=== PATIENT | female | born 1940 | race Caucasian/White ===

== ENCOUNTER → 2016-08-10 | Outpatient (REF) | payer MEDICARE, BC ==
[2016-08-10 17:58] LABS: MEAN CORPUSCULAR HGB CONC 34.1 g/dl (32.0-36.5); MEAN CORPUSCULAR VOLUME 93.8 fl (80.0-96.0); RED CELL DISTRIBUTION WIDTH 12.1 % (11.5-14.5); WHITE BLOOD COUNT 6.2 K/mm3 (4.0-10.0)
[2016-08-10 18:54] LABS: VITAMIN B12 LEVEL 795 PG/ML (247-911)
[2016-08-10 18:57] LABS: ALBUMIN 4.2 GM/DL (3.2-5.2); ALBUMIN/GLOBULIN RATIO 1.31 (1.00-1.93); ALKALINE PHOSPHATASE 128 U/L (45-117); ALT/SGPT 25 U/L (12-78); ANION GAP 8 MEQ/L (8-16); AST/SGOT 18 U/L (15-37); BILIRUBIN,TOTAL 0.2 MG/DL (0.2-1.0); BLOOD UREA NITROGEN 30 MG/DL (7-18); CARBON DIOXIDE LEVEL 31 MEQ/L (21-32); CHLORIDE LEVEL 100 MEQ/L (98-107); CREATININE FOR GFR 0.93 MG/DL (0.55-1.02); FERRITIN 61 NG/ML (8-252); GLOMERULAR FILTRATION RATE > 60.0 (>39); GLUCOSE, FASTING 77 MG/DL (83-110); PERCENT SATURATION 22.6 % (13.2-37.4); SODIUM LEVEL 139 MEQ/L (136-145); TOTAL IRON BINDING CAPACITY 314 UG/DL (250-450); TOTAL PROTEIN 7.4 GM/DL (6.4-8.2)
== END ==
LOC: M SFHCPLAZ 15:54
PROVIDERS: ATTEND Nurse Practitioner Adult Health
DX: R53.83 Other fatigue (principal); I10 Essential (primary) hypertension; G40.909 Epilepsy, unspecified, not intractable, without status epilepticus; K21.9 Gastro-esophageal reflux disease without esophagitis; E55.9 Vitamin D deficiency, unspecified; J45.909 Unspecified asthma, uncomplicated; K58.9 Irritable bowel syndrome, unspecified; K44.9 Diaphragmatic hernia without obstruction or gangrene; M19.90 Unspecified osteoarthritis, unspecified site; N95.2 Postmenopausal atrophic vaginitis; M25.551 Pain in right hip; M48.06 Spinal stenosis, lumbar region; M47.817 Spondylosis without myelopathy or radiculopathy, lumbosacral region; Z79.899 Other long term (current) drug therapy
CPT/HCPCS: 36415; 80053; 81002; 82607; 82728; 83550; 85027; 87088; 87186; G0463

== ENCOUNTER → 2016-10-25 | Outpatient (CLI) | payer MEDICARE, BC ==
[~2016-10-25] MED LIST: ASPE4PAD2 EX; BIOF4GEL EX; CELE100C PO; CEPH500T PO; CLAR10CA3 PO; COUM2.5T17 PO; DEXI60CA2 PO; FOLI1TAB4 PO; GLUC15002 PO; GLUCTAB PO; HYDR25TAB PO; IBUP-1114 PO; LUTE20CA PO; MAGN200T PO; MOME50SP2; MSM1500T PO; NUTRIFERON PO; PATA0.2S OP; PERC5TAB12 PO; PHEN100C PO; REFR0.5D8 OP; REST0.05 OP; SING10TA32 PO; SUPE1TAB PO; TYLE650T35 PO; VITA200038 PO; ZAFI20TA PO
[2016-10-25 11:33] LABS: MEAN CORPUSCULAR HGB CONC 34.7 g/dl (32.0-36.5); MEAN CORPUSCULAR VOLUME 92.1 fl (80.0-96.0); RED CELL DISTRIBUTION WIDTH 12.1 % (11.5-14.5); WHITE BLOOD COUNT 5.6 K/mm3 (4.0-10.0)
--- NOTE | 2016-10-25 11:35 | REP ---
Chest two views HISTORY: Hypertension Comparison: 08/03/2012 The lungs are clear. The heart is normal in size. The pulmonary vasculature is normal in appearance. The bony structure is intact. IMPRESSION: No acute disease. Signed by Kaushik Kennedy MD 10/25/2016 11:26 A
[2016-10-25 11:37] LABS: INR 0.98
[2016-10-25 11:47] LABS: ALBUMIN 4.1 GM/DL (3.2-5.2); ALBUMIN/GLOBULIN RATIO 1.21 (1.00-1.93); ALKALINE PHOSPHATASE 116 U/L (45-117); ALT/SGPT 28 U/L (12-78); ANION GAP 5 MEQ/L (8-16); AST/SGOT 24 U/L (15-37); BILIRUBIN,TOTAL 0.3 MG/DL (0.2-1.0); BLOOD UREA NITROGEN 29 MG/DL (7-18); CALCIUM LEVEL 9.4 MG/DL (8.8-10.2); CARBON DIOXIDE LEVEL 32 MEQ/L (21-32); CHLORIDE LEVEL 103 MEQ/L (98-107); CREATININE FOR GFR 0.91 MG/DL (0.55-1.02); GLOMERULAR FILTRATION RATE > 60.0 (>39); GLUCOSE, FASTING 92 MG/DL (83-110); POTASSIUM SERUM 4.7 MEQ/L (3.5-5.1); SODIUM LEVEL 140 MEQ/L (136-145); TOTAL PROTEIN 7.5 GM/DL (6.4-8.2)
--- NOTE | 2016-10-25 20:33 | ECGEPIP ---
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 Normal study Electronically Signed On 10-25-2016 20:33:04 EDT by Dmitriy Burnett
== END ==
LOC: M ADMPAT 09:11
PROVIDERS: ATTEND Orthopaedic Surgery
DX: M16.11 Unilateral primary osteoarthritis, right hip (principal); Z79.01 Long term (current) use of anticoagulants

== ENCOUNTER 2016-11-08 06:11 | Inpatient (IN) | payer MEDICARE, BC ==
[2016-10-25 10:43] VITALS: BP 132/64
--- NOTE | 2016-11-04 12:29 | HPE ---
DATE OF ADMISSION: 11/08/2016 ATTENDING PHYSICIAN: Jignesh Baldwin MD CHIEF COMPLAINT: Right hip pain and stiffness. HISTORY: This is a pleasant 76-year-old female patient with progressively worsening right hip pain and stiffness. She has failed to improve with conservative management. She was admitted for elective hip replacement on the right side. She has consented for a right total hip arthroplasty by Dr. Baldwin. X-rays of her right hip notable for [id number] degenerative changes of the right hip. Medical optimization Mr. Hoyos ALLERGIES: PENICILLIN, ASPIRIN, ULTRAM, DETROL CURRENT MEDICATIONS: Calcium 600 with vitamin D and 600/200 mg one tablet once per day, lovastatin 100 mg tablet once per day, folic acid 1 mg one tablet once per day, Dexilant 60 mg 1 tablet once per day, Singulair 10 mg one tablet once per day, Claritin 10 mg one tablet as needed, Celebrex 100 mg one tablet twice a day, phenytoin 100 mg one tablet TID, hydrochlorothiazide 25 mg one tablet once per day, Zafirlukast 20 mg one tablet BID, lutein 20 mg one tablet once per day, Systane eye drops as needed, ProAir inhaler 100 mcg as needed, Spiriva Respimat 2.5 mcg one spray once per day. PAST SURGICAL HISTORY: She has had a left total hip arthroplasty, breast biopsy total hysterectomy, gallbladder removed tonsils and adenoids removed, tubal ligation and appendectomy. FAMILY HISTORY: Arthritis, diabetes, hypertension and heart disease. SOCIAL HISTORY: She does not smoke. She rarely uses alcohol. She is currently works in [employer]. REVIEW OF SYSTEMS: Denies fever or chills. Denies chest pain, shortness breath or cough. Denies difficulty breathing. Denies abdominal pain. Denies nausea or vomiting. Denies recent upper respiratory infection, urinary tract infection (UTI) symptoms. Notes persistent pain in her right hip with weightbearing activities. Exam today reveals alert well-nourished, well-developed female patient and she walks with a slight limping gait favoring right side. Exam of the right hip does reveal some irritability on hip range of motion. Straight leg raise testing is negative. Deep tendon reflexes are trace at the knee, absent at the ankle. There is a well-perfused right lower extremity. Dorsalis pedis, posterior tibial pulses are palpable. Neck is supple adenopathy or jugular venous distension (JVD). Lungs are clear to auscultation without rales or wheeze. HEART: regular rate and rhythm. ABDOMEN: Bowel sounds are present. VITAL SIGNS: Height 64 inches, weight 135 pounds, temperature 97.6, blood pressure 102/60, temperature i 97.6 pulses 88, respirations 16. LABORATORY DATA: Chest x-ray: No acute cardiopulmonary process noted. Electrocardiogram (EKG): Sinus rhythm. WBC count of eight, red blood cell (RBC) count 5.6, hemoglobin 4.1, hematocrit 13.4, glucose 92, 129, creatinine 0.91, sodium 140, potassium 4.7, PT 13.1, INR 0.98. Urine culture no growth. Sedimentation rate of 8. Urinalysis 1+ blood and trace leukocyte esterase. Nasal culture positive for staphylococcus, methicillin-resistant staphylococcus. She was treated per protocol. Will also changing antibiotics to vancomycin 1 gram IV ammonia operator to the operating room. IMPRESSION: Symptomatic osteoarthritis a right hip. PLAN: Consented for right total hip replacement by Dr. Baldwin. MARLENE
[~2016-11-08] VITALS: Ht 165.1 cm; Wt 62.6 kg
[2016-11-08] VITALS (7 sets, daily range): BP systolic 120–139; BP diastolic 56–67
[2016-11-08] MEDS: **UNRESOLVED NON-FORMULARY MED ORDER XX SCH (00:01)
[~2016-11-08 06:11] MED LIST changes: +BUPIVACAINE/EPIN 0.25% 30 ML VIAL As Ordered ONE; +CLINDAMYCIN INJ 900MG/6ML VIAL As Ordered ONE; -COUM2.5T17 PO; +EPINEPHrine INJ 1 MG/ML 1ML AMP As Ordered ONE; -PERC5TAB12 PO; +TRANEXAMIC ACID 100 MG/ML 10ML VIAL As Ordered ONE
[2016-11-08] MEDS ORDERED: LIDOCAINE 1% SDV 5 ML VIAL SQ ONE (06:30)
[2016-11-08] MEDS ORDERED: LR 1,000 ML IV SCH ×2 (06:30→10:30)
[2016-11-08] MEDS ORDERED: PERCOCET 5MG/325MG TAB PO ONE (06:45)
[2016-11-08] MEDS ORDERED: CelecoXIB 400 MG CAP PO ONE (06:45)
[2016-11-08] MEDS ORDERED: PREGABALIN 75 MG CAP(LYRICA) PO ONE (06:45)
[2016-11-08] MEDS ORDERED: VANCOMYCIN HCL 1,000 MG, VIAL MATE ADAPTER 1 EACH in D5W 250 ML IV ONE ×2 (06:45→19:00)
[2016-11-08] MEDS ORDERED: LIDOCAINE 2% INJ 100 MG/5 ML SDV (FOR ANES.) As Ordered ONE (07:17)
[2016-11-08] MEDS ORDERED: PROPOFOL 200 MG/20 ML VIAL As Ordered ONE (07:17)
[2016-11-08] MEDS ORDERED: MIDAZOLAM INJ 2 MG/2 ML VIAL (J2250) As Ordered ONE ×2 (07:19→08:16)
[2016-11-08] MEDS ORDERED: fentaNYL 100 MCG/2 ML INJECTION (J3010) As Ordered ONE (07:20)
[2016-11-08] MEDS ORDERED: PHENYLephrine HCL 500 MCG/5 ML (100MCG/ML) SYRINGE (J2370) As Ordered ONE (08:36)
[2016-11-08] MEDS ORDERED: ONDANSETRON 4MG/2ML VIAL (J2405) As Ordered ONE (08:36)
[2016-11-08] MEDS ORDERED: ePHEDrine SULFATE 25 MG/5 ML(5MG/ML) SYRINGE As Ordered ONE ×2 (08:36→09:09)
[2016-11-08] MEDS ORDERED: dexameTHASONE 4 MG/ML 1ML VIAL (J1100) As Ordered ONE (08:44)
[2016-11-08] MEDS ORDERED: ONDANSETRON 4MG/2ML VIAL (J2405) IV PRN ×2 (10:30→12:00)
[2016-11-08] MEDS ORDERED: PERCOCET 5MG/325MG TAB PO PRN ×2 (10:30→12:00)
[2016-11-08] MEDS ORDERED: MEPERIDINE INJ 25 MG/ML VIAL (J2175) IV PRN (10:30)
[2016-11-08] MEDS ORDERED: METOCLOPRAMIDE INJ 10MG/2ML VIAL (J2765) IV PRN (10:30)
[2016-11-08] MEDS ORDERED: fentaNYL 100 MCG/2 ML INJECTION (J3010) IV PRN (10:30)
[2016-11-08] MEDS ORDERED: FLEET ENEMA PR PRN (12:00)
[2016-11-08] MEDS ORDERED: ACETAMINOPHEN TAB 650MG DOSE (2X325MG) PO PRN ×2 (12:00)
[2016-11-08] MEDS ORDERED: NORTRIPTYLINE 10 MG CAP PO PRN (12:00)
[2016-11-08] MEDS: PERCOCET 5MG/325MG TAB PO PRN ×2 (12:36→19:20)
[2016-11-08] MEDS: D5W/LR 1,000 ML IV SCH ×2 (12:37→22:32)
[2016-11-08] MEDS ORDERED: ALBUTEROL SULFATE 2.5 MG/0.5 ML INH NEB SOLN INH PRN (13:00)
[2016-11-08] MEDS ORDERED: HYDROmorphone HCL 1 MG/ML SYRINGE (J1170) IV PRN ×2 (13:45)
[2016-11-08] MEDS ORDERED: GLUCAGON FOR INJ 1 MG VIAL (J1610) SC PRN (14:15)
[2016-11-08] MEDS ORDERED: DEXTROSE 50% 50 ML SYRINGE IV PRN (14:15)
[2016-11-08] MEDS ORDERED: GLUCOSE 4 GM CHEW TABLET PO PRN (14:15)
[2016-11-08] MEDS: PANTOPRAZOLE 40MG TAB (PROTONIX) PO SCH (14:45)
[2016-11-08] MEDS: FOLIC ACID 1 MG TAB PO SCH (14:46)
[2016-11-08] MEDS: hydroCHLOROthiazide 25 MG TAB PO SCH (14:46)
[2016-11-08] MEDS: VITAMIN D 1,000 INTERNATIONAL UNITS TABLET PO SCH (14:46)
[2016-11-08] MEDS: LORATADINE 10 MG TAB PO SCH (14:46)
[2016-11-08] MEDS ORDERED: WARFARIN SOD 2.5 MG TAB PO ONE (17:00)
[2016-11-08] MEDS ORDERED: WARFARIN SOD 1 MG TAB PO ONE (17:00)
[2016-11-08] MEDS: PHENYTOIN ER 100 MG CAP PO SCH ×2 (17:02→20:38)
[2016-11-08] MEDS: PREGABALIN 50 MG CAP (LYRICA) PO SCH (20:38)
[2016-11-08] MEDS ORDERED: ZAFIRLUKAST 20 MG TAB PO SCH (21:00)
[2016-11-09] MEDS: **UNRESOLVED NON-FORMULARY MED ORDER XX SCH (00:01)
[2016-11-09] MEDS: PERCOCET 5MG/325MG TAB PO PRN ×4 (01:19→20:24)
[2016-11-09 06:00] VITALS: BP 125/59
--- NOTE | 2016-11-09 06:08 | CR ---
DATE OF CONSULTATION: 11/08/2016 CHIEF COMPLAINT: Right hip pain and stiffness. Hospitalist was consulted for medical management. HISTORY OF PRESENT ILLNESS: This is a pleasant 76-year-old female with significant past medical history of seizure disorder, asthma, hyperlipidemia, hypertension, gastroesophageal reflux disease (GERD), vitamin D deficiency, who also has a history of right hip pain and stiffness, status post right hip replacement by Dr. Baldwin. The patient is resting comfortably on the surgical floor without any acute complaint at this time. Denies any nausea. Tolerated oral intake without difficulty. The patient is taking deep breaths and is willing to utilize spirometer. Pleasant to speak to and no acute complaint at this time. REVIEW OF SYSTEMS: 10-point review of systems negative other than those described in history of present illness (HPI). PAST MEDICAL HISTORY: Significant for hypoglycemia, history of seizure disorder, hyperlipidemia, hypertension, GERD, asthma, and vitamin D deficiency. PAST SURGICAL HISTORY: Includes left total hip arthroplasty, breast biopsy, total hysterectomy, cholecystectomy, tonsil and adenoid removal, tubal ligation, appendectomy. FAMILY HISTORY: Family medical history significant for arthritis, diabetes, hypertension, and heart disease. SOCIAL HISTORY: The patient does not smoke, drink or use illicit drugs. ALLERGIES: The patient is allergic to: 1. PENICILLIN. 2. ASPIRIN. 3. ULTRAM. 4. DETROL. MEDICATIONS FROM HOME: - acetaminophen 650 mg by mouth every eight hours - Celebrex 100 mg by mouth twice a day - cephalexin 500 mg by mouth as needed prior to dental appointment - ibuprofen 400 mg tablet half tablet daily as needed - Aspercreme - lidocaine patch - Biofreeze roll-on 4% gel - Refresh Tears 0.5% drop - Dexilant 60 mg by mouth daily - glucosamine 1500 complex one capsule orally - magnesium 200 mg by mouth daily - methylsulfonylmethane 1500 mg by mouth - mometasone 50 mcg every morning - Pataday 0.2% both eyes every morning - Restasis 0.05% both eyes twice a day - super B complex one tablet once a day - Lutein 20 mg by mouth daily - NutriFeron one powder twice a day - calciferol vitamin D3 2000 units by mouth daily - folic acid 1 mg by mouth daily - hydrochlorothiazide 25 mg by mouth daily - loratadine 10 mg by mouth daily - Singulair one tablet once a day - phenytoin extended release 100 mg by mouth three times a day - zafirlukast 20 mg by mouth twice a day PHYSICAL EXAMINATION: VITAL SIGNS: Temperature is 97.6, heart rate of 82, respiratory rate 16, and saturating 100% on room air. Blood pressure is 133/66. HEENT: Normocephalic. No trauma noted. Inspection of the ears, nose and throat is within normal. Pupils equal, round, and reactive to light and accommodation. Mucus is moist. NECK: Supple. No tracheal deviation. CARDIAC: S1, S2, regular rate and rhythm. Pulses present. LUNGS: Equal air entry. Did not hear any wheezes, rales, or rhonchi. ABDOMEN: Soft, nontender. Bowel sounds present. LOWER EXTREMITIES: The patient is status post right hip replacement. Visualization of the incision site without the bandage looks clean without any bleeding. There was no bandage covering the site. Will defer further management to surgery. Sequential compression devices (SCDs). NECK: The patient is currently awake, alert, and oriented times three. Cranial nerves grossly intact. Motor and sensory intact with limitations after surgery. Normal mood and affect for current situation. Pleasant to speak to. LABORATORY DATA: No recent diagnostic studies other than preoperative laboratory on 10/25 of this year with WBC, hemoglobin and hematocrit, and platelets all within normal. Complete metabolic profile within normal except for BUN of 29 and glucose of 172. Cholesterol level all within normal. Will defer further management of anticholesterol medicine to the primary care provider (PCP). INR, PT within normal. Toxicology: Digoxin level is 0.1. Phenytoin is 8.3. UA did show nonspecific UTI with leukocyte esterase being trace and negative nitrites, with WBC only being 5 for a female. No obvious x-ray for me to review other than preoperative chest x-ray which showed no acute disease. ASSESSMENT AND PLAN: This is a pleasant 76-year-old female with significant past medical history of seizure, hypertension, hyperlipidemia, gastroesophageal reflux disease (GERD), asthma, vitamin D deficiency, and history of hypoglycemia as per staff endorsement, who is status post right hip surgery and replacement by Dr. Baldwin. 1. Right hip replacement. Defer further management to Dr. Baldwin. Defer pain management, anticoagulation to Dr. Baldwin. 2. History of seizure. Will resume phenytoin. 3. Hyperlipidemia. Please follow with PCP. 4. Hypertension. Resume home medication. 5. Gastroesophageal reflux disease (GERD). Substitute home medication with Protonix for now. 6. Asthma. Resume loratadine, Singulair, zafirlukast, and respiratory treatment as needed. Continue spirometer as recommended by surgery. 7. Vitamin D deficiency. Resume vitamin D supplement. 8. Deep venous thrombosis (DVT) prophylaxis as per surgery.
[2016-11-09 06:50] LABS: MEAN CORPUSCULAR HEMOGLOBIN 32.5 pg (27.0-33.0); MEAN CORPUSCULAR HGB CONC 35.2 g/dl (32.0-36.5); MEAN CORPUSCULAR VOLUME 92.3 fl (80.0-96.0); WHITE BLOOD COUNT 5.2 K/mm3 (4.0-10.0)
[2016-11-09 06:56] LABS: INR 1.15
[2016-11-09 07:08] LABS: ANION GAP 9 MEQ/L (8-16); BLOOD UREA NITROGEN 14 MG/DL (7-18); CALCIUM LEVEL 7.9 MG/DL (8.8-10.2); CARBON DIOXIDE LEVEL 29 MEQ/L (21-32); CHLORIDE LEVEL 98 MEQ/L (98-107); CREATININE FOR GFR 0.76 MG/DL (0.55-1.02); GLOMERULAR FILTRATION RATE > 60.0 (>39); GLUCOSE, FASTING 153 MG/DL (83-110); POTASSIUM SERUM 3.4 MEQ/L (3.5-5.1); SODIUM LEVEL 136 MEQ/L (136-145)
[2016-11-09] MEDS ORDERED: POTASSIUM CHLORIDE 10 MEQ SR TABLET PO ONE (07:30)
[2016-11-09 08:00] LABS: MAGNESIUM LEVEL 1.6 MG/DL (1.8-2.4)
[2016-11-09] MEDS: hydroCHLOROthiazide 25 MG TAB PO SCH (08:12)
[2016-11-09] MEDS: PHENYTOIN ER 100 MG CAP PO SCH ×3 (08:12→20:22)
[2016-11-09] MEDS: MIRALAX *UNIT DOSE* 17GM PACKET PO SCH (08:12)
[2016-11-09] MEDS: MOM 30ML SUSPENSION UDC PO SCH (08:12)
[2016-11-09] MEDS: VITAMIN D 1,000 INTERNATIONAL UNITS TABLET PO SCH (08:12)
[2016-11-09] MEDS: MAGNESIUM OXIDE 400 MG TAB (MAG-OX) PO SCH (08:13)
[2016-11-09] MEDS: PANTOPRAZOLE 40MG TAB (PROTONIX) PO SCH (08:13)
[2016-11-09] MEDS: LORATADINE 10 MG TAB PO SCH (08:13)
[2016-11-09] MEDS: MONTELUKAST 10 MG TAB PO SCH (08:13)
[2016-11-09] MEDS: FOLIC ACID 1 MG TAB PO SCH (08:13)
[2016-11-09] MEDS: PREGABALIN 50 MG CAP (LYRICA) PO SCH ×2 (08:13→20:23)
[2016-11-09] MEDS: CelecoXIB (CeleBREX) 100 MG CAP PO SCH (08:13)
[2016-11-09] MEDS: SENOKOT S TAB PO SCH ×2 (08:14→20:23)
--- NOTE | 2016-11-09 08:35 | RO ---
DATE OF PROCEDURE: 11/08/2016 PREOPERATIVE DIAGNOSIS: Right hip osteoarthritis. POSTOPERATIVE DIAGNOSIS: Right hip osteoarthritis. PROCEDURE PERFORMED: Right total hip replacement. SURGEON: Jignesh Baldwin MD OPTIC FIBRE DRAWER: MIRANDA Ruelas ANESTHESIA: Spinal. INTRAOPERATIVE FINDINGS: Include severe osteoarthritis, osteophyte formation and synovial hypertrophy. ESTIMATED BLOOD LOSS: Is less than 300 mL, replaced with crystalloid. COMPLICATIONS: None. COMPONENTS USED: Include DePuy Moneta Press-Fit hip system size 6 femoral stem, size 54 mm acetabular cup, size 36 mm Altrex acetabular liner, apex hole eliminator 36 mm +5 head standard offset. INDICATIONS: Progressive discomfort in the right hip in a 76-year-old woman with a history of left hip replacement 10 years ago. [id number] arthritic changes with sclerosis on both sides of the joint. CONSENT: Reviewed in detail including a odell discussion of the pathology involved, procedure proposed, alternatives including doing nothing and risks including but not limited to pain, failure, infection, bleeding blood loss, incomplete relief of symptoms, dislocation, blood clots, need for more surgery and other issues. The patient understands and agrees to proceed with surgery. DESCRIPTION OF PROCEDURE: Operative course: Identified in the holding area, was brought to the operating room, anesthesia was administered, positioned in the lateral decubitus position on the Tecumseh frame for exposure of the right hip for right hip replacement. The approach is a modified Hardinge approach. Time-out was accomplished. Environmental suits were utilized. Once the patient was sterilely prepped and draped in the usual fashion, we began the procedure. I stood on the patient's posterior, Mr. Arnold on the patient's anterior. Incision outlined with marking pen, infiltrated with 0.25% Marcaine with epinephrine and based on the greater trochanter a longitudinal incision was made with a #10 blade knife, developed down through skin and subcuticular tissues to the lateral fascia. Monopolar cautery was utilized for hemostasis. The lateral fascia was split using a Clinton scissor proximally and distally. Abductor mechanism was identified, split at the 2-o'clock position. Mr. Arnold placed retractors. The femoral capsule and minimus were opened in along the 2-o'clock oblique capsular incision. A cuff of tissue was left in the greater trochanter for later repair. A tag stitch was placed in the abductor mechanism at its anterior aspect and I released the abductor mechanism from the anterior third of the greater trochanter. I split the vastus lateralis and we split the hip capsule so that I could palpate the lesser trochanter. The reflected head of the vastus was released at the acetabulum. The hip dislocation hook was placed by myself and Mr. Arnold assisted with traction and rotation to help dislocate the hip. Appropriate retractors were placed. A femoral neck cut was made. Femoral head was removed. Appropriate retractors were place. Canal opening reamer was used, followed by the conical reamers through a size 6, followed by placement of the 10 plate and removal of the femoral head using the oscillating saw three-quarter fingerbreadths from lesser trochanter with palpation. Then, broaches were utilized. We went through a size 6 broach, which seemed to fit securely. Attention was turned to the acetabulum. We placed the appropriate retractors anterior and posterior and then, I removed the acetabular labrum, cleared the fossa on the floor of the acetabulum using the hot knife. The patient had significant synovial inflammation and hypertrophied synovial was also removed using the hot knife. Transverse acetabular ligament was released. Once this was accomplished, we then reamed beginning with a size 46 and reaming through a size 53 hemispherical reamer. The reaming continued to the floor of the acetabulum. I trialed with a 54 trial acetabulum, which fit appropriately. Irrigation was accomplished and then we implanted the non trial 54 mm acetabular shell. It was tamped into place. I verified stability and I verified it was in the floor of the acetabulum. Then, we placed the apex hole eliminator. I irrigated with pulse lavage and then placed the non trial 36 mm neutral Altrex liner, which was tamped into place using the impactor. Once this was accomplished, some posterior osteophyte was removed using [place] and then we turned our attention back to the femoral side where the trial femoral component was installed and I trialed successfully with a +5 neck length, 36 mm femoral head. This was stable with flexion and internal rotation as well as extension and external rotation, and soft tissue tension was appropriate and abductor mechanism was easily approximated. The hip was again dislocated. Non trial components were installed. The tranexamic acid (TXA) solution was instilled into the wound, allowed to stand for 1 minute and evacuated. Then, the hip was reduced. Then, we repaired the capsule and minimus tissues with [id number] interrupted stitch. The abductor mechanism was repaired to the cuff of tissue on the greater trochanter. The vastus lateralis was repaired using a running stitch. The perineal stitch running was utilized on the lateral fascia approximating that and the tensor fascia josue fascia. Deep dermis approximated with interrupted stitch and a Prineo dressing was applied. The patient was then moved the hospital bed, a pillow was placed between the knees, moved to recovery room, good condition. For further details, please refer to the medical record. Please note Mr. Arnold was present and participated in the entirety of the case in the capacity of first responder. MARLENE
[2016-11-09 10:00] VITALS: BP 129/58
--- NOTE | 2016-11-09 10:33 | REP ---
RIGHT HIP, TWO VIEWS: HISTORY: Hip replacement. COMPARISON: 08/11/2016. The patient is status post right total hip replacement. There is no acute fracture or dislocation. A small amount of subcutaneous air is present in the overlying subcutaneous tissue. IMPRESSION: The patient is status post right total hip replacement. There is anatomic alignment. Signed by Kaushik Kennedy MD 11/09/2016 10:36 A
[2016-11-09 14:00] VITALS: BP 130/60
[2016-11-09] MEDS ORDERED: WARFARIN SOD 5 MG TAB PO ONE (17:00)
--- NOTE | 2016-11-09 18:40 | IPN ---
DATE: 11/08/2016 The patient is seen and examined. No acute events overnight. Denies any fevers, chills, chest pain, pressure, or discomfort. The patient is comfortable. Reported surgical pain to be within tolerable limits. Denies any shortness of breath. VITAL SIGNS: Temperature 99.8, pulse 96, respirations 14, blood pressure 130/60, pulse oximetry 93% on room air. LABORATORY DATA: WBC 5.2, hemoglobin and hematocrit 10.4/29.5, platelets 139. Chemistry: Sodium 136, potassium 3.4, chloride 98, bicarbonate 29, BUN 14, creatinine 0.76, magnesium 1.6. PHYSICAL EXAMINATION: GENERAL: The patient is alert and oriented times three. No acute distress. Comfortable. HEENT: Normocephalic, atraumatic. PULMONARY: Bilaterally clear to auscultation. CARDIAC: Regular rate and rhythm. Normal S1, S2. ABDOMEN: Soft, nontender. Positive bowel sounds. EXTREMITIES: Status post right hip replacement. Surgical site clean, dry and intact. Dorsalis pedis and posterior tibialis pulses are 2+ bilaterally. ASSESSMENT AND PLAN: This is a 76-year-old female patient with underlying medical history of seizure disorder, hypertension, dyslipidemia, gastroesophageal reflux disease (GERD), asthma, vitamin D deficiency, hypoglycemia in the past, admitted under orthopedic service status post right hip replacement by Dr. Jignesh Baldwin. 1. Osteoarthritis with right hip replacement. Pain management, perioperative antibiotics, anticoagulation, physical therapy (PT), activity status as per Dr. Baldwin. Bowel regimen as ordered. 2. Deep vein thrombosis (DVT) prophylaxis. The patient is on Coumadin. Followup INR. 3. History of seizures. Continue current medications. 4. Dyslipidemia. Outpatient followup. 5. Hypertension. Continue home medications. 6. Gastroesophageal reflux disease (GERD). Continue proton pump inhibitor. 7. Asthma. Continue current medications. 8. Vitamin D deficiency. Continue vitamin D supplementation. 9. Hypokalemia. Continue supplementation. 10. Hypomagnesemia. Continue supplementation. 11. Deep vein thrombosis (DVT) prophylaxis. As per surgery, the patient is on Coumadin. DISPOSITION: Pending physical therapy (PT).
[2016-11-09] MEDS ORDERED: MAG SULF 1GM/100ML (MAG RUN) 1 GM in APPROPRIATE DILUENT 1 EA IV ONE (19:00)
[2016-11-09 21:18] VITALS: O2SAT 94
[2016-11-09 22:00] VITALS: BP 135/63
[2016-11-10] MEDS: **UNRESOLVED NON-FORMULARY MED ORDER XX SCH (00:01)
[2016-11-10 06:00] VITALS: BP 119/58
[2016-11-10 07:08] LABS: MEAN CORPUSCULAR HEMOGLOBIN 32.3 pg (27.0-33.0); MEAN CORPUSCULAR HGB CONC 35.6 g/dl (32.0-36.5); MEAN CORPUSCULAR VOLUME 90.8 fl (80.0-96.0); RED CELL DISTRIBUTION WIDTH 12.2 % (11.5-14.5); WHITE BLOOD COUNT 8.2 K/mm3 (4.0-10.0)
[2016-11-10] MEDS ORDERED: COUM2.5T17 PO (07:08)
[2016-11-10] MEDS ORDERED: PERC5TAB12 PO (07:08)
[2016-11-10 07:27] LABS: INR 1.46
[2016-11-10 07:29] LABS: ANION GAP 10 MEQ/L (8-16); BLOOD UREA NITROGEN 16 MG/DL (7-18); CARBON DIOXIDE LEVEL 29 MEQ/L (21-32); CHLORIDE LEVEL 100 MEQ/L (98-107); CREATININE FOR GFR 0.77 MG/DL (0.55-1.02); GLOMERULAR FILTRATION RATE > 60.0 (>39); GLUCOSE, FASTING 143 MG/DL (83-110); MAGNESIUM LEVEL 2.3 MG/DL (1.8-2.4); POTASSIUM SERUM 3.9 MEQ/L (3.5-5.1); SODIUM LEVEL 139 MEQ/L (136-145)
[2016-11-10] MEDS: MONTELUKAST 10 MG TAB PO SCH (08:38)
[2016-11-10] MEDS: MOM 30ML SUSPENSION UDC PO SCH (08:38)
[2016-11-10] MEDS: MIRALAX *UNIT DOSE* 17GM PACKET PO SCH (08:38)
[2016-11-10] MEDS: CelecoXIB (CeleBREX) 100 MG CAP PO SCH (08:38)
[2016-11-10] MEDS: MAGNESIUM OXIDE 400 MG TAB (MAG-OX) PO SCH (08:39)
[2016-11-10] MEDS: LORATADINE 10 MG TAB PO SCH (08:39)
[2016-11-10] MEDS: SENOKOT S TAB PO SCH (08:39)
[2016-11-10] MEDS: FOLIC ACID 1 MG TAB PO SCH (08:39)
[2016-11-10] MEDS: PREGABALIN 50 MG CAP (LYRICA) PO SCH (08:39)
[2016-11-10] MEDS: VITAMIN D 1,000 INTERNATIONAL UNITS TABLET PO SCH (08:39)
[2016-11-10] MEDS: PHENYTOIN ER 100 MG CAP PO SCH (08:39)
[2016-11-10] MEDS: hydroCHLOROthiazide 25 MG TAB PO SCH (08:39)
[2016-11-10] MEDS: PERCOCET 5MG/325MG TAB PO PRN (08:40)
[2016-11-10] MEDS: PANTOPRAZOLE 40MG TAB (PROTONIX) PO SCH (08:40)
--- NOTE | 2016-11-10 19:21 | IPN ---
DATE: 11/10/2016 Patient seen and examined. No acute events overnight. Denies any chest pain, pressure, discomfort, shortness of breath, tolerating physical therapy, tolerating oral. VITAL SIGNS: Temperature 99.6, pulse 94, respirations 18, blood pressure 119/58, pulse oximetry 95% on room air. LABORATORY DATA: WBC 8.2. Hemoglobin and hematocrit 10.1 over 28.1, platelets 143. Chemistry: Sodium 139, potassium 3.9, chloride 100, bicarbonate 29, BUN 16, creatinine 0.77. PHYSICAL EXAMINATION: GENERAL: Patient alert and oriented times three, in no acute distress, comfortable. HEENT: Normocephalic, atraumatic. PULMONARY: Bilaterally clear to auscultation. CARDIAC: Regular rate and rhythm. Normal S1, S2. ABDOMEN: Soft, nontender. Positive bowel sounds. EXTREMITIES: Status post right hip replacement. Surgical site clean, dry, intact. Dorsalis pedis (DP), posterior tibial (PT) pulses are 2+ bilateral. ASSESSMENT AND PLAN: This is a 76-year-old female patient with underlying medical history of seizure disorder, hypertension, dyslipidemia and gastroesophageal reflux disease (GERD), asthma, vitamin D deficiency, hypoglycemia in the past, admitted under orthopedic service, status post right hip replacement by Dr. Jignesh Baldwin. Problems: 1. Osteoarthritis with right hip replacement. Pain management, perioperative antibiotics, anticoagulation, physical therapy, activity status as per Dr. Baldwin. Bowel regimen as ordered. Deep vein thrombosis (DVT) prophylaxis; patient on Coumadin. Followup international normalized ratio (INR). 2. History of seizure. Continue current medication. 3. Dyslipidemia. Outpatient followup. 4. Hypertension. Continue current medication. 5. Gastroesophageal reflux disease . Continue proton pump inhibitor (PPI). 6. Asthma. Continue current medication. 7. Vitamin D deficiency. Continue supplementation as ordered. 8. Hypokalemia, resolved. Supplementation provided. 9. Hypomagnesemia, resolved. Supplementation provided. 10. Deep vein thrombosis (DVT) prophylaxis. As per surgery, the patient is on Coumadin. DISPOSITION: Likely discharge later today.
--- NOTE | 2016-11-17 09:27 | DSES ---
DATE OF ADMISSION: 11/08/2016 DATE OF DISCHARGE: 11/10/2016 ATTENDING PHYSICIAN: Dr. Jignesh Baldwin. ADMITTING DIAGNOSIS: Right hip pain and stiffness secondary to osteoarthritis. OTHER DIAGNOSES: Gastroesophageal reflux disease. Hyperlipidemia. Hypertension. Seasonal allergies. Hypoglycemia. History of seizure disorder. Asthma. Vitamin D deficiency. DISCHARGE DIAGNOSIS: Right hip pain and stiffness secondary to osteoarthritis status post right total hip arthroplasty. HISTORY: Patient is a 76-year-old female with progressively worsening right hip pain and stiffness. She failed to improve with conservative measures so she has consented for an elective right total hip arthroplasty with Dr. Baldwin. OPERATION PERFORMED: Right total hip arthroplasty. HOSPITAL COURSE: The patient underwent a right total hip arthroplasty under spinal anesthesia which was uneventful. Her hospital course was without complication and she was up with physical therapy per their protocol, weight bearing as tolerated on the right lower extremity. Patient was discharged on oral pain medications and was instructed to resume her preoperative medications and diet. Patient will take her Coumadin and use her thromboembolic deterrent stockings for 30 days postoperatively to prevent deep venous thrombosis. She will followup in our office in 12-14 days for wound check and staple removal. She does agree to contact our clinic sooner if there is any increased pain, drainage, fevers greater than 101 degrees, numbness or tingling in the extremity or for any other concerns. Please see medical record for additional details. MARLENE
== END 2016-11-10 14:28 | disposition home health service (06) | DRG 470 ==
LOC: M OR 06:11 → EEVIPCON 11:30 → M MS5PR 11:31
PROVIDERS: ADMIT Orthopaedic Surgery; ATTEND Orthopaedic Surgery
PROC: 0SR904A Replacement of Right Hip Joint with Ceramic on Polyethylene Synthetic Substitute, Uncemented, Open Approach (ICD-10-PCS; principal; 2016-11-08 07:30)
DX: M16.11 Unilateral primary osteoarthritis, right hip (principal); Z88.0 Allergy status to penicillin; Z88.8 Allergy status to other drugs, medicaments and biological substances; Z79.899 Other long term (current) drug therapy; G40.909 Epilepsy, unspecified, not intractable, without status epilepticus; J45.909 Unspecified asthma, uncomplicated; K21.9 Gastro-esophageal reflux disease without esophagitis; I10 Essential (primary) hypertension; E55.9 Vitamin D deficiency, unspecified; E78.5 Hyperlipidemia, unspecified; E87.6 Hypokalemia; E83.42 Hypomagnesemia

== ENCOUNTER → 2016-11-24 | Outpatient (REF) | payer MEDICARE, BC ==
[~2016-11-24] MED LIST changes: -BUPIVACAINE/EPIN 0.25% 30 ML VIAL As Ordered ONE; -CLINDAMYCIN INJ 900MG/6ML VIAL As Ordered ONE; +COUM2.5T17 PO; -EPINEPHrine INJ 1 MG/ML 1ML AMP As Ordered ONE; +PERC5TAB12 PO; -TRANEXAMIC ACID 100 MG/ML 10ML VIAL As Ordered ONE
[2016-11-24 16:03] LABS: INR 1.36
== END ==
LOC: M LAB REF 15:36
PROVIDERS: ATTEND Orthopaedic Surgery
DX: Z51.81 Encounter for therapeutic drug level monitoring (principal); Z79.01 Long term (current) use of anticoagulants

== ENCOUNTER → 2017-05-26 | Outpatient (REF) | payer MEDICARE, BC ==
[2017-05-26 12:40] LABS: HEMATOCRIT 39.4 % (36.0-47.0); HEMOGLOBIN 13.5 g/dl (12.0-16.0); MEAN CORPUSCULAR HEMOGLOBIN 31.3 pg (27.0-33.0); MEAN CORPUSCULAR HGB CONC 34.3 g/dl (32.0-36.5); MEAN CORPUSCULAR VOLUME 91.2 fl (80.0-96.0); PLATELET COUNT, AUTOMATED 187 10^3/uL (150-450); RED BLOOD COUNT 4.32 10^6/uL (4.00-5.40); RED CELL DISTRIBUTION WIDTH 12.1 % (11.5-14.5); WHITE BLOOD COUNT 4.8 10^3/uL (4.0-10.0)
[2017-05-26 12:59] LABS: CHOLESTEROL LEVEL 176 MG/DL (<200); CHOLESTEROL RISK RATIO 2.707 (<5); HDL CHOLESTEROL 65 MG/DL (>40); LDL CHOLESTEROL 94.4 MG/DL (<100); NON-HDL-C 111 MG/DL; TRIGLYCERIDES LEVEL 83 MG/DL (<150)
[2017-05-26 13:06] LABS: TOTAL 25(OH) VITAMIN D 43.8 NG/ML (30.0-100.0)
[2017-05-26 13:18] LABS: HEPATITIS B SURFACE ANTIGEN NEGATIVE (NEGATIVE)
[2017-05-26 13:44] LABS: HEPATITIS B CORE ANTIBODY IGM NEGATIVE (NEGATIVE)
[2017-05-26 13:46] LABS: HEPATITIS A ANTIBODY IGM NEGATIVE (NEGATIVE)
== END ==
LOC: M LABDRAW1 07:50
DX: Z20.5 Contact with and (suspected) exposure to viral hepatitis (principal); E55.9 Vitamin D deficiency, unspecified; G40.909 Epilepsy, unspecified, not intractable, without status epilepticus; I10 Essential (primary) hypertension
CPT/HCPCS: 80185

== ENCOUNTER → 2018-04-05 | Outpatient (REF) | payer MEDICARE, BC ==
[~2018-04-05] MED LIST changes: +FOLI1TAB11 PO; -FOLI1TAB4 PO; +ZAFI1TAB PO; -ZAFI20TA PO
[2018-04-05 13:14] LABS: ALBUMIN 4.1 GM/DL (3.2-5.2); BILIRUBIN,TOTAL 0.3 MG/DL (0.2-1.0); CALCIUM LEVEL 9.1 MG/DL (8.8-10.2); CHOLESTEROL RISK RATIO 2.753 (<5); CREATININE FOR GFR 1.14 MG/DL (0.55-1.30); GLOMERULAR FILTRATION RATE 49.2 (>39); PHENYTOIN (DILANTIN) 13.7 UG/ML (10.0-20.0); POTASSIUM SERUM 4.5 MEQ/L (3.5-5.1); TOTAL PROTEIN 7.3 GM/DL (6.4-8.2)
[2018-04-05 13:17] LABS: TOTAL 25(OH) VITAMIN D 44.3 NG/ML (30.0-100.0)
== END ==
LOC: M SFHCPLAZ 08:49 → M SFHCADAM 08:51
PROVIDERS: ATTEND Nurse Practitioner Adult Health
DX: E55.9 Vitamin D deficiency, unspecified (principal); I10 Essential (primary) hypertension; G40.909 Epilepsy, unspecified, not intractable, without status epilepticus

== ENCOUNTER → 2019-03-25 | Outpatient (REF) | payer MEDICARE, BC ==
[2019-03-25 15:58] LABS: BILIRUBIN,TOTAL 0.3 MG/DL (0.2-1.0); CALCIUM LEVEL 9.1 MG/DL (8.8-10.2); CHOLESTEROL RISK RATIO 2.4 (<5); CREATININE FOR GFR 1.08 MG/DL (0.55-1.30); GLOMERULAR FILTRATION RATE 52.2 (>39); PHENYTOIN (DILANTIN) 18.9 UG/ML (10.0-20.0); POTASSIUM SERUM 3.9 MEQ/L (3.5-5.1); TOTAL PROTEIN 7.4 GM/DL (6.4-8.2)
[2019-03-25 16:04] LABS: TOTAL 25(OH) VITAMIN D 37.7 NG/ML (30.0-100.0)
== END ==
LOC: M SFHCPLAZ 13:50
PROVIDERS: ATTEND Nurse Practitioner Adult Health
DX: E55.9 Vitamin D deficiency, unspecified (principal); G40.909 Epilepsy, unspecified, not intractable, without status epilepticus; Z13.220 Encounter for screening for lipoid disorders; I10 Essential (primary) hypertension

== ENCOUNTER → 2019-05-30 | Outpatient (CLI) | payer MEDICARE, BC ==
[~2019-05-30] MED LIST changes: +E-Z-GAS II EFFERVESCENT PACKET (SODIUM BICARB./CITRIC ACID/SIMETHICONE) As Ordered ONE; +E-Z-HD 98% w/w 340GM SUSP BTL As Ordered ONE; +E-Z-PAQUE 96% w/w SUSP 176GM BTL As Ordered ONE
--- NOTE | 2019-05-30 19:35 | REP ---
Examination Requested: Esophagram Barium Swallow Reason For Exam/Comment: Dysphasia, history of heartburn Esophagram: The procedure was performed AAKASH Keating, under the direct supervision of Dr. Parra. The images were reviewed with Dr. Parra. A single PA chest x-ray is submitted as a regional agronomist film. Comparison is made to chest radiographs dated 06/01/2006 and 10/26/2016. There is a benign granulomas noncalcified nodule in the left lower lung. The superior mediastinal structures are midline. The heart size is within normal limits. The lungs are clear. There is degenerative disc disease of the cervical spine. Liquid barium and gas producing granules were given in the erect position as well as liquid barium in the prone oblique position, in order to perform a double contrast esophagram examination. Oral and pharyngeal stages of the examination were unremarkable. Esophageal transport is efficient and there is no esophagitis, stricture, or mucosal ring noted. There is osteophyte formation of the C5-6 and C6-7 indenting the posterior aspect of the esophagus. There is no hiatal hernia noted. Gastroesophageal reflux was visualized to the level of the miles. Impression: 1. Gastroesophageal reflux to the level of the miles. 2. Anterior osteophyte formation of C5-6 and C6-7 indenting the posterior aspect of the esophagus. 0.3 minutes of fluoroscopy time was utilized for this procedure. Some fluoroscopic images are performed with last image hold technology. These images require no additional radiation. Reviewed by AAKASH Arenas 05/30/2019 05:25 P Electronically Signed by Modesto Parra MD 05/30/2019 07:25 P
== END ==
LOC: M RAD 07:52
PROVIDERS: ATTEND Physician Assistant Medical
DX: R13.10 Dysphagia, unspecified (principal); K21.9 Gastro-esophageal reflux disease without esophagitis; M25.78 Osteophyte, vertebrae

== ENCOUNTER 2019-06-20 06:59 | Day surgery (SDC) | payer MEDICARE, BC ==
[~2019-06-20] VITALS: Ht 165.1 cm; Wt 64.9 kg
[~2019-06-20 06:59] MED LIST changes: +D3 S20002 PO; -E-Z-GAS II EFFERVESCENT PACKET (SODIUM BICARB./CITRIC ACID/SIMETHICONE) As Ordered ONE; -E-Z-HD 98% w/w 340GM SUSP BTL As Ordered ONE; -E-Z-PAQUE 96% w/w SUSP 176GM BTL As Ordered ONE; +FAMO40TA3 PO; +HYDR12.55 PO; +LOSA100T50 PO; +NEUR100C PO; +NS 1,000 ML IV ONE; +SUPETAB44 PO
[2019-06-20] MEDS ORDERED: propofoL 200 MG/20 ML VIAL As Ordered ONE (07:13)
[2019-06-20] MEDS ORDERED: LIDOCAINE 2% INJ 100 MG/5 ML SDV (FOR ANES.) As Ordered ONE (07:14)
[2019-06-20] MEDS ORDERED: fentaNYL 100 MCG/2 ML INJECTION (J3010) As Ordered ONE (07:47)
--- NOTE | 2019-06-20 08:52 | ROOR ---
Patient Name: Ashwini Cain Procedure Date: 06/20/2019 8:40 AM Date of : 1940 Age: 79 Room: [facility] Gender: Female Note Status: Finalized Procedure: Upper GI endoscopy Indications: Dysphagia, Esophageal reflux, Globus sensation Providers: Angelito CARTER MD Referring MD: Jill LOVE NP Requesting Provider: Medicines: Monitored Anesthesia Care Complications: No immediate complications. Procedure: Pre-Anesthesia Assessment: - The heart rate, respiratory rate, oxygen saturations, blood pressure, adequacy of pulmonary ventilation, and response to care were monitored throughout the procedure. The Endoscope was introduced through the mouth, and advanced to the second part of duodenum. The upper GI endoscopy was accomplished without difficulty. The patient tolerated the procedure well. Findings: The esophagus was normal. The stomach was normal. The examined duodenum was normal. No endoscopic abnormality was evident in the esophagus to explain the patient's complaint of dysphagia. It was decided, however, to proceed with dilation of the entire esophagus. The scope was withdrawn. Dilation was performed with a Gustafson dilator with no resistance at 54 Fr. The dilation site was examined following endoscope reinsertion and showed no change. Impression: - Normal esophagus. - Normal stomach. - Normal examined duodenum. - No endoscopic esophageal abnormality to explain patient's dysphagia. Esophagus dilated. Dilated. - No specimens collected. Recommendation: - Observe patient's clinical course. - I anticipate no further need for intervention. - Return to referring physician as previously scheduled. Angelito Carter MD Angelito CARTER MD 06/20/2019 8:52:10 AM Electronically signed by Angelito CARTER MD Number of Addenda: 0 Note Initiated On: 06/20/2019 8:40 AM Estimated Blood Loss: Estimated blood loss: none.
[2019-06-20 09:05] VITALS: BP 106/55
== END 2019-06-20 09:17 | disposition home or self-care (01) ==
LOC: M OPP 06:59
PROVIDERS: ATTEND Internal Medicine Gastroenterology
DX: K21.9 Gastro-esophageal reflux disease without esophagitis (principal); F45.8 Other somatoform disorders; R13.10 Dysphagia, unspecified; R12 Heartburn; Z79.899 Other long term (current) drug therapy; Z88.0 Allergy status to penicillin; Z88.5 Allergy status to narcotic agent; Z88.6 Allergy status to analgesic agent; Z88.8 Allergy status to other drugs, medicaments and biological substances
CPT/HCPCS: 43235; 43450; J3010

== ENCOUNTER → 2020-03-23 | Outpatient (REF) | payer MEDICARE, BC ==
[~2020-03-23] MED LIST changes: +ACET650T61 PO; -NS 1,000 ML IV ONE; +OLOP2.5D3 OP; -PATA0.2S OP; -TYLE650T35 PO
[2020-03-23 17:34] LABS: ALBUMIN 4.1 GM/DL (3.2-5.2); BILIRUBIN,TOTAL 0.3 MG/DL (0.2-1.0); CALCIUM LEVEL 9.3 MG/DL (8.8-10.2); CHOLESTEROL RISK RATIO 2.815 (<5); CREATININE FOR GFR 1.14 MG/DL (0.55-1.30); GLOMERULAR FILTRATION RATE 48.9 (>39); PHENYTOIN (DILANTIN) 16.9 UG/ML (10.0-20.0); POTASSIUM SERUM 4.2 MEQ/L (3.5-5.1); TOTAL PROTEIN 7.2 GM/DL (6.4-8.2)
[2020-03-23 17:41] LABS: TOTAL 25(OH) VITAMIN D 43.6 NG/ML (30.0-100.0)
== END ==
LOC: M SFHCPLAZ 14:11
PROVIDERS: ATTEND Nurse Practitioner Adult Health
DX: E55.9 Vitamin D deficiency, unspecified (principal); G40.909 Epilepsy, unspecified, not intractable, without status epilepticus; Z13.220 Encounter for screening for lipoid disorders; Z79.899 Other long term (current) drug therapy; Z23 Encounter for immunization
CPT/HCPCS: 36415; 80053; 80061; 80185; 82306; 90732; G0009

== ENCOUNTER → 2021-12-20 | Outpatient (CLI) | payer MEDICARE, BC ==
[~2021-12-20] MED LIST changes: +HYDR-3490 PO; -HYDR25TAB PO; +LOSA100T45 PO; -LOSA100T50 PO
== END ==
LOC: M LAB 10:11
PROVIDERS: ATTEND Optometrist
DX: H53.2 Diplopia (principal)

== ENCOUNTER → 2022-03-30 | Outpatient (CLI) | payer MEDICARE, BC ==
[2022-03-30 13:05] LABS: HEMATOCRIT 39.5 % (36.0-47.0); HEMOGLOBIN 12.8 g/dl (12.0-15.5); MEAN CORPUSCULAR HEMOGLOBIN 30.5 pg (27.0-33.0); MEAN CORPUSCULAR HGB CONC 32.4 g/dl (32.0-36.5); MEAN CORPUSCULAR VOLUME 94.3 fl (80.0-96.0); PHENYTOIN (DILANTIN) 14.8 UG/ML (10.0-20.0); PLATELET COUNT, AUTOMATED 160 10^3/uL (150-450); RED BLOOD COUNT 4.19 10^6/uL (4.00-5.40); WHITE BLOOD COUNT 5.3 10^3/uL (4.0-10.0)
[2022-03-30 13:07] LABS: BILIRUBIN,TOTAL 0.5 MG/DL (0.3-1.2); CALCIUM LEVEL 9.4 MG/DL (8.3-10.6); CHOLESTEROL RISK RATIO 2.77 (<5); CREATININE FOR GFR 1.1 MG/DL (0.55-1.30); GLOMERULAR FILTRATION RATE 50.7 (>32); HDL CHOLESTEROL 57.3 MG/DL (>40); LDL CHOLESTEROL 88.5 MG/DL (<100); POTASSIUM SERUM 4.7 MMOL/L (3.5-5.1); TOTAL PROTEIN 6.9 G/DL (5.7-8.2)
[2022-03-30 13:09] LABS: TOTAL 25(OH) VITAMIN D 61.9 NG/ML (20.0-100.0)
== END ==
LOC: M LABDRWAD 08:05
PROVIDERS: ATTEND Nurse Practitioner Adult Health
DX: Z00.00 Encounter for general adult medical examination without abnormal findings (principal); E55.9 Vitamin D deficiency, unspecified; G40.909 Epilepsy, unspecified, not intractable, without status epilepticus; R53.83 Other fatigue; Z13.220 Encounter for screening for lipoid disorders

== ENCOUNTER → 2022-08-12 | Outpatient (CLI) | payer MEDICARE, BC ==
[~2022-08-12] MED LIST changes: -LOSA100T45 PO; +LOSA100T46 PO; +MONT-5 PO; -SING10TA32 PO
== END ==
LOC: M PLAIMG 14:55
PROVIDERS: ATTEND Physician Assistant
DX: M25.512 Pain in left shoulder (principal); M89.8X2 Other specified disorders of bone, upper arm

== ENCOUNTER → 2022-09-29 | Outpatient (CLI) | payer MEDICARE, BC ==
[~2022-09-29] MED LIST changes: -ZAFI1TAB PO; +ZAFI20TA11 PO
== END ==
LOC: M SOG 13:40
PROVIDERS: ATTEND Physician Assistant
DX: S42.255D Nondisplaced fracture of greater tuberosity of left humerus, subsequent encounter for fracture with routine healing (principal); M19.012 Primary osteoarthritis, left shoulder

== ENCOUNTER → 2023-03-28 | Outpatient (REF) | payer MEDICARE, BC | LOC: M SFHCPLAZ 08:10 | PROVIDERS: ATTEND Nurse Practitioner Adult Health | DX: Z53.9 Procedure and treatment not carried out, unspecified reason (principal) ==

== ENCOUNTER → 2023-03-28 | Outpatient (CLI) | payer MEDICARE, BC ==
[2023-03-28 14:15] LABS: HEMATOCRIT 41.5 % (36.0-47.0); HEMOGLOBIN 13.9 g/dl (12.0-15.5); MEAN CORPUSCULAR HEMOGLOBIN 31.5 pg (27.0-33.0); MEAN CORPUSCULAR HGB CONC 33.5 g/dl (32.0-36.5); MEAN CORPUSCULAR VOLUME 94.1 fl (80.0-96.0); PLATELET COUNT, AUTOMATED 190 10^3/uL (150-450); RED BLOOD COUNT 4.41 10^6/uL (4.00-5.40); WHITE BLOOD COUNT 5.5 10^3/uL (4.0-10.0)
[2023-03-28 14:28] LABS: ALBUMIN 4.3 G/DL (3.2-5.2); BILIRUBIN,TOTAL 0.7 MG/DL (0.3-1.2); CALCIUM LEVEL 9.7 MG/DL (8.3-10.6); CHOLESTEROL RISK RATIO 2.41 (<5); CREATININE FOR GFR 1.01 MG/DL (0.55-1.30); FERRITIN 28.6 NG/ML (7.3-270.7); FREE T4 0.9 NG/DL (0.89-1.76); GLOMERULAR FILTRATION RATE 55.9 (>32); HDL CHOLESTEROL 70.9 MG/DL (>40); LDL CHOLESTEROL 85.3 MG/DL (<100); NON-HDL-C 100.1 MG/DL; PERCENT SATURATION 42.2 % (13.2-45.0); POTASSIUM SERUM 4.3 MMOL/L (3.5-5.1); THYROID STIMULATING HORMONE 4.551 uIU/ML (0.55-4.78); TOTAL 25(OH) VITAMIN D 39.8 NG/ML (20.0-100.0); TOTAL PROTEIN 7.2 G/DL (5.7-8.2)
[2023-03-28 14:34] LABS: PHENYTOIN (DILANTIN) 19.7 UG/ML (10.0-20.0)
== END ==
LOC: M LABDRWAD 08:30
PROVIDERS: ATTEND Nurse Practitioner Adult Health
DX: Z00.00 Encounter for general adult medical examination without abnormal findings (principal); R53.83 Other fatigue; Z13.220 Encounter for screening for lipoid disorders; G40.909 Epilepsy, unspecified, not intractable, without status epilepticus; E55.9 Vitamin D deficiency, unspecified; I10 Essential (primary) hypertension; M48.062 Spinal stenosis, lumbar region with neurogenic claudication; K21.9 Gastro-esophageal reflux disease without esophagitis; J45.909 Unspecified asthma, uncomplicated; K58.9 Irritable bowel syndrome, unspecified; K44.9 Diaphragmatic hernia without obstruction or gangrene; M19.90 Unspecified osteoarthritis, unspecified site; N95.2 Postmenopausal atrophic vaginitis; Z13.29 Encounter for screening for other suspected endocrine disorder; Z86.39 Personal history of other endocrine, nutritional and metabolic disease

== ENCOUNTER → 2023-09-12 | Outpatient (CLI) | payer MEDICARE, BC ==
[2023-09-12 19:53] LABS: BILIRUBIN,TOTAL 0.5 MG/DL (0.3-1.2); CALCIUM LEVEL 9.3 MG/DL (8.3-10.6); CREATININE FOR GFR 1.02 MG/DL (0.55-1.30); GLOMERULAR FILTRATION RATE 55.2 (>32); POTASSIUM SERUM 3.9 MMOL/L (3.5-5.1)
== END ==
LOC: M PLALAB 14:51
PROVIDERS: ATTEND Nurse Practitioner Adult Health
DX: E55.9 Vitamin D deficiency, unspecified (principal); I10 Essential (primary) hypertension

== ENCOUNTER → 2023-12-04 | Outpatient (REF) | payer MEDICARE, BC ==
[2023-12-04 16:10] LABS: APPEARANCE, URINE CLOUDY (CLEAR); BACTERIA, URINE AUTO 1+ (NEGATIVE); BILIRUBIN, URINE AUTO NEGATIVE (NEGATIVE); BLOOD, URINE BLOOD 1+ (NEGATIVE); COLOR, URINE YELLOW (YELLOW); GLUCOSE, URINE (UA) AUTO NEGATIVE (NEGATIVE); KETONE, URINE AUTO NEGATIVE (NEGATIVE); LEUKOCYTE ESTERASE, URINE AUTO 3+ (NEGATIVE); MUCUS, URINE SMALL (NEGATIVE); NITRITE, URINE AUTO POSITIVE (NEGATIVE); PROTEIN, URINE AUTO 1+ mg/dL (NEGATIVE); RBC, URINE AUTO 23 /HPF (0-3); SPECIFIC GRAVITY URINE AUTO 1.016 (1.002-1.035); SQUAMOUS EPITHELIAL CELL UR AU 11 /HPF (0-6); TRANSITIONAL EPITHELIAL AUTO <1 /HPF; UROBILINOGEN, URINE AUTO 0.2 mg/dL (0.0-2.0); WBC, URINE AUTO TNTC /HPF (0-3)
== END ==
LOC: M SFHCPLAZ 15:08
PROVIDERS: ATTEND Nurse Practitioner Family
DX: R39.9 Unspecified symptoms and signs involving the genitourinary system (principal)

== ENCOUNTER → 2023-12-16 | Outpatient (REF) | payer MEDICARE, BC | LOC: M WUC 18:33 | PROVIDERS: ATTEND Registered Nurse | DX: N39.0 Urinary tract infection, site not specified (principal) ==

== ENCOUNTER → 2023-12-21 | Outpatient (REF) | payer MEDICARE, BC | LOC: M LAB REF 12:25 | PROVIDERS: ATTEND Nurse Practitioner Family | DX: R30.0 Dysuria (principal) ==

== ENCOUNTER → 2024-02-09 | Outpatient (REF) | payer MEDICARE, BC ==
[2024-02-09 13:00] LABS: APPEARANCE, URINE CLOUDY (CLEAR); BACTERIA, URINE AUTO 2+ (NEGATIVE); BILIRUBIN, URINE AUTO NEGATIVE (NEGATIVE); BLOOD, URINE BLOOD 1+ (NEGATIVE); COLOR, URINE YELLOW (YELLOW); GLUCOSE, URINE (UA) AUTO NEGATIVE (NEGATIVE); KETONE, URINE AUTO NEGATIVE (NEGATIVE); LEUKOCYTE ESTERASE, URINE AUTO 3+ (NEGATIVE); NITRITE, URINE AUTO NEGATIVE (NEGATIVE); PROTEIN, URINE AUTO 1+ mg/dL (NEGATIVE); RBC, URINE AUTO 20 /HPF (0-3); SPECIFIC GRAVITY URINE AUTO 1.011 (1.002-1.035); SQUAMOUS EPITHELIAL CELL UR AU 3 /HPF (0-6); TRANSITIONAL EPITHELIAL AUTO 2 /HPF; UROBILINOGEN, URINE AUTO 0.2 mg/dL (0.0-2.0); WBC, URINE AUTO TNTC /HPF (0-3)
== END ==
LOC: M SMT 12:26
PROVIDERS: ATTEND Urology
DX: Z87.440 Personal history of urinary (tract) infections (principal); Z79.899 Other long term (current) drug therapy

== ENCOUNTER → 2024-03-02 | Outpatient (REF) | payer MEDICARE, BC | LOC: M LAB REF 18:32 | PROVIDERS: ATTEND Physician Assistant Medical | DX: N39.0 Urinary tract infection, site not specified (principal) ==

== ENCOUNTER → 2024-03-19 | Outpatient (REF) | payer MEDICARE, BC ==
[2024-03-19 18:09] LABS: APPEARANCE, URINE CLEAR (CLEAR); BACTERIA, URINE AUTO NEGATIVE (NEGATIVE); BILIRUBIN, URINE AUTO NEGATIVE (NEGATIVE); BLOOD, URINE BLOOD NEGATIVE (NEGATIVE); COLOR, URINE YELLOW (YELLOW); GLUCOSE, URINE (UA) AUTO NEGATIVE (NEGATIVE); KETONE, URINE AUTO NEGATIVE (NEGATIVE); LEUKOCYTE ESTERASE, URINE AUTO TRACE (NEGATIVE); MUCUS, URINE SMALL (NEGATIVE); NITRITE, URINE AUTO NEGATIVE (NEGATIVE); PROTEIN, URINE AUTO NEGATIVE (NEGATIVE); RBC, URINE AUTO 4 /HPF (0-3); SQUAMOUS EPITHELIAL CELL UR AU 0 /HPF (0-6); UROBILINOGEN, URINE AUTO 0.2 mg/dL (0.0-2.0); WBC, URINE AUTO 3 /HPF (0-3)
== END ==
LOC: M SMT 17:08
PROVIDERS: ATTEND Urology
DX: Z87.440 Personal history of urinary (tract) infections (principal); Z79.899 Other long term (current) drug therapy

== ENCOUNTER → 2024-03-27 | Outpatient (CLI) | payer MEDICARE, BC | LOC: M PLAIMG 13:39 | PROVIDERS: ATTEND Nurse Practitioner Adult Health | DX: M25.552 Pain in left hip (principal); Z96.643 Presence of artificial hip joint, bilateral ==

== ENCOUNTER → 2024-06-05 | Outpatient (REF) | payer MEDICARE, BC ==
[2024-06-06 15:38] LABS: APPEARANCE, URINE CLEAR (CLEAR); BACTERIA, URINE AUTO NEGATIVE (NEGATIVE); BILIRUBIN, URINE AUTO NEGATIVE (NEGATIVE); BLOOD, URINE BLOOD 1+ (NEGATIVE); COLOR, URINE YELLOW (YELLOW); GLUCOSE, URINE (UA) AUTO NEGATIVE (NEGATIVE); KETONE, URINE AUTO NEGATIVE (NEGATIVE); LEUKOCYTE ESTERASE, URINE AUTO 2+ (NEGATIVE); NITRITE, URINE AUTO NEGATIVE (NEGATIVE); PROTEIN, URINE AUTO NEGATIVE (NEGATIVE); RBC, URINE AUTO 4 /HPF (0-3); SPECIFIC GRAVITY URINE AUTO 1.011 (1.002-1.035); SQUAMOUS EPITHELIAL CELL UR AU 0 /HPF (0-6); UROBILINOGEN, URINE AUTO 0.2 mg/dL (0.0-2.0); WBC, URINE AUTO 11 /HPF (0-3)
== END ==
LOC: M SMT 14:27
PROVIDERS: ATTEND Urology
DX: R39.9 Unspecified symptoms and signs involving the genitourinary system (principal)

== ENCOUNTER → 2024-06-28 | Outpatient (CLI) | payer MEDICARE, BC ==
[2024-06-28 12:18] LABS: ALBUMIN 3.7 G/DL (3.2-5.2); ALKALINE PHOSPHATASE 81 U/L (35-104); ALT/SGPT 18 U/L (7.0-40); AST/SGOT 21 U/L (<34); BILIRUBIN,TOTAL 0.5 MG/DL (0.3-1.2); BLOOD UREA NITROGEN 33 MG/DL (9-23); CARBON DIOXIDE LEVEL 30 MMOL/L (20-31); CHLORIDE LEVEL 102 MMOL/L (98-107); CREATININE FOR GFR 0.94 MG/DL (0.55-1.30); GLOMERULAR FILTRATION RATE > 60.0 (>32); GLUCOSE, FASTING 129 MG/DL (74-106); SODIUM LEVEL 141 MMOL/L (136-145); TOTAL PROTEIN 7.3 G/DL (5.7-8.2)
== END ==
LOC: M LAB 11:24
PROVIDERS: ATTEND Nurse Practitioner Adult Health
DX: I10 Essential (primary) hypertension (principal)

== ENCOUNTER → 2024-07-01 | Outpatient (CLI) | payer MEDICARE ==
[~2024-07-01] MED LIST changes: +ISOVUE-370 76% 100ML VIAL As Ordered ONE
== END ==
LOC: M RAD 09:26
PROVIDERS: ATTEND Nurse Practitioner Adult Health
DX: R93.89 Abnormal findings on diagnostic imaging of other specified body structures (principal); R91.8 Other nonspecific abnormal finding of lung field
CPT/HCPCS: 71260; Q9967

== ENCOUNTER → 2024-07-29 | Outpatient (CLI) | payer MEDICARE, BC ==
[~2024-07-29] MED LIST changes: -ISOVUE-370 76% 100ML VIAL As Ordered ONE
== END ==
LOC: M PLARAD 14:10
PROVIDERS: ATTEND Nurse Practitioner Adult Health
DX: R91.8 Other nonspecific abnormal finding of lung field (principal); Z53.9 Procedure and treatment not carried out, unspecified reason

== ENCOUNTER → 2024-08-12 | Outpatient (CLI) | payer MEDICARE, BC | LOC: M PLARAD 11:17 | PROVIDERS: ATTEND Family Medicine | DX: R91.1 Solitary pulmonary nodule (principal) | CPT/HCPCS: 78815; A9552 ==

== ENCOUNTER → 2024-10-21 | Outpatient (REF) | payer MEDICARE, BC ==
[2024-10-21 17:38] LABS: APPEARANCE, URINE CLOUDY (CLEAR); BACTERIA, URINE AUTO 1+ (NEGATIVE); BILIRUBIN, URINE AUTO NEGATIVE (NEGATIVE); BLOOD, URINE BLOOD NEGATIVE (NEGATIVE); GLUCOSE, URINE (UA) AUTO NEGATIVE (NEGATIVE); KETONE, URINE AUTO NEGATIVE (NEGATIVE); LEUKOCYTE ESTERASE, URINE AUTO 3+ (NEGATIVE); NITRITE, URINE AUTO POSITIVE (NEGATIVE); PROTEIN, URINE AUTO NEGATIVE (NEGATIVE); RBC, URINE AUTO 4 /HPF (0-3); SPECIFIC GRAVITY URINE AUTO 1.014 (1.002-1.035); SQUAMOUS EPITHELIAL CELL UR AU 7 /HPF (0-6); UROBILINOGEN, URINE AUTO 0.2 mg/dL (0.0-2.0); WBC, URINE AUTO TNTC /HPF (0-3)
== END ==
LOC: M SMT 16:44
PROVIDERS: ATTEND Nurse Practitioner Family
DX: N39.41 Urge incontinence (principal)

== ENCOUNTER → 2025-03-05 | Outpatient (CLI) | payer MEDICARE, BC | LOC: M PLAIMG 07:26 | PROVIDERS: ATTEND Pain Medicine Interventional Pain Medicine | DX: M48.061 Spinal stenosis, lumbar region without neurogenic claudication (principal) ==